=== PATIENT | female | born 1975 | race Caucasian/White ===

== ENCOUNTER 2016-10-07 07:48 | Emergency (ER) | payer BC, OTHER ==
[~2016-10-07] VITALS: Ht 165.1 cm; Wt 65.0 kg
[2016-10-07 07:58] VITALS: Ht 165.1 cm; Wt 65.0 kg
[2016-10-07] MEDS ORDERED: KETOROLAC 15 MG INJ IV STA (08:20)
[2016-10-07] MEDS ORDERED: SOD CHLORIDE 0.9% 1,000 ML IV STA (08:20)
[2016-10-07] MEDS ORDERED: ONDANSETRON 4 MG INJ IV STA (08:20)
[2016-10-07 08:49] LABS: ADD SCAN DIFF NO
[2016-10-07 08:54] LABS: ABNORMAL IP MESSAGE 1; BASOPHILS % 0.2 % (0.0-2.0); EOSINOPHILS # 0.2 10^3/ul (0.0-0.5); EOSINOPHILS % 2.4 % (0.0-7.0); HEMATOCRIT 38.9 % (37.0-47.0); LYMPHOCYTES # 0.3 10^3/ul (0.8-2.9); LYMPHOCYTES % 5.4 % (15.0-51.0); MEAN CORPUSCULAR HEMOGLOBIN 31.6 pg (29.0-33.0); MEAN CORPUSCULAR HGB CONC 33.4 g/dl (32.0-37.0); MEAN CORPUSCULAR VOLUME 94.4 fl (82.0-101.0); MEAN PLATELET VOLUME 9.3 fl (7.4-10.4); MONOCYTE # 0.4 10^3/ul (0.3-0.9); MONOCYTES % 6.3 % (0.0-11.0); NEUTROPHIL # 5.4 10^3/ul (1.6-7.5); NEUTROPHILS % 85.5 % (39.0-77.0); PLATELET COUNT 224 10^3/UL (140-415); RED BLOOD COUNT 4.12 10^6/ul (4.20-5.40); RED CELL DISTRIBUTION WIDTH 12.1 % (11.5-14.5); WHITE BLOOD COUNT 6.3 10^3/ul (4.8-10.8)
--- NOTE | 2016-10-07 08:56 | ERD ---
ER Documentation Chief Complaint Date/Time DATE: 10/07/16 TIME: 08:53 Chief Complaint nausea vomiting dizzy abdominal pain since last night HPI Is a 41-year-old female who presents emergency department today complaining of multiple bouts of vomiting since last night. States she has had some abdominal pain and headache and dizziness. States that she took Dramamine and Pepto- Bismol last night with no improvement in symptoms. Denies any fevers or chills , cough, diarrhea. States she is here with her daughter with similar symptoms ROS All systems reviewed and are negative except as per history of present illness. Medications Home Meds Active Scripts Acetaminophen* (Tylophen*) 500 Mg Capsule, 1 CAP PO Q6H Y for PAIN AND OR ELEVATED TEMP, #30 CAP Prov:KODY GARZA PA-C 10/07/16 Naproxen* (Naprosyn*) 500 Mg Tablet, 500 MG PO BID Y for PAIN AND/OR INFLAMMATION, #30 TAB Prov:KOYD GARZA PA-C 10/07/16 Ondansetron Hcl* (Zofran*) 4 Mg Tablet, 4 MG PO Q6H for NAUSEA AND/OR VOMITING, #30 TAB Prov:KODY GARZA PA-C 10/07/16 PMhx/Soc Medical and Surgical Hx: pt denies Medical Hx, pt denies Surgical Hx Hx Alcohol Use: No Hx Substance Use: No Hx Tobacco Use: No Smoking Status: Never smoker Physical Exam Vitals Vital Signs Date Time Temp Pulse Resp B/P Pulse Ox O2 Delivery O2 Flow Rate FiO2 10/07/16 07:58 99.3 112 18 124/74 97 Physical Exam Const: No acute distress Head: Atraumatic Eyes: Normal Conjunctiva. PERRLA. EOM intact ENT: Normal External Ears, Nose and Mouth. Neck: Full range of motion..~ No meningismus. Resp: Clear to auscultation bilaterally Cardio: Regular rate and rhythm, no murmurs Abd: Soft, mild epigastric, non distended. Normal bowel sounds no right upper quadrant pain. No tenderness [place] Skin: No petechiae or rashes Back: No midline or flank tenderness Ext: No cyanosis, or edema Neur: Awake and alert. Cranial nerves II through XII intact. No gait ataxia. Psych: Normal Mood and Affect Result Diagram: 10/07/16 0835 10/07/16 0835 Results 24 hrs Laboratory Tests Test 10/07/16 08:35 White Blood Count 6.310^3/ul Red Blood Count 4.1210^6/ul Hemoglobin 13.0g/dl Hematocrit 38.9% Mean Corpuscular Volume 94.4fl Mean Corpuscular Hemoglobin 31.6pg Mean Corpuscular Hemoglobin Concent 33.4g/dl Red Cell Distribution Width 12.1% Platelet Count 05515^3/UL Mean Platelet Volume 9.3fl Neutrophils % 85.5% Lymphocytes % 5.4% Monocytes % 6.3% Eosinophils % 2.4% Basophils % 0.2% Nucleated Red Blood Cells % 0.0/100WBC Neutrophils # 5.410^3/ul Lymphocytes # 0.310^3/ul Monocytes # 0.410^3/ul Eosinophils # 0.210^3/ul Basophils # 0.010^3/ul Nucleated Red Blood Cells # 0.010^3/ul Urine Color YELLOW Urine Clarity SLIGHTLY CLOUDY Urine pH 7.0 Urine Specific [place] 1.029 Urine Ketones NEGATIVEmg/dL Urine Nitrite NEGATIVEmg/dL Urine Bilirubin NEGATIVEmg/dL Urine Urobilinogen NEGATIVEmg/dL Urine Leukocyte Esterase NEGATIVELeu/ul Urine Microscopic RBC 2/HPF Urine Microscopic WBC 1/HPF Urine Squamous Epithelial Cells FEW/HPF Urine Hemoglobin NEGATIVEmg/dL Urine Glucose NEGATIVEmg/dL Urine Total Protein NEGATIVEmg/dl Sodium Level 141mmol/L Potassium Level 4.2mmol/L Chloride Level 101mmol/L Carbon Dioxide Level 27mmol/L Anion Gap 17 Blood Urea Nitrogen 20mg/dl Creatinine 0.88mg/dl Glucose Level 103mg/dl Calcium Level 8.3mg/dl Total Bilirubin 0.5mg/dl Direct Bilirubin 0.00mg/dl Indirect Bilirubin 0.5mg/dl Aspartate Amino Transf (AST/SGOT) 24IU/L Alanine Aminotransferase (ALT/SGPT) 27IU/L Alkaline Phosphatase 45IU/L Total Protein 6.8g/dl Albumin 4.4g/dl Globulin 2.40g/dl Albumin/Globulin Ratio 1.83 Lipase 76U/L Current Medications Medications (Trade) Dose Ordered Sig/Moustapha Route PRN Reason Start Time Stop Time Status Last Admin Dose Admin Sodium Chloride (NS) 1,000 ml @ 1,000 mls/hr Q1H STAT IV 7/17/17 08:20 10/07/16 09:19 DC 10/07/16 08:32 Ondansetron HCl (Zofran Inj) 4 mg ONCE STAT IV 10/07/16 08:20 10/07/16 08:22 DC 10/07/16 08:33 Ketorolac Tromethamine (Toradol) 30 mg ONCE STAT IV 10/07/16 08:20 10/07/16 08:22 DC 10/07/16 08:34 Procedures/MDM This 41-year-old female who presents the emergency department today for vomiting , dizziness, headache and abdominal pain that started last night. Patient had very mild epigastric pain on physical exam. She was afebrile and otherwise well -appearing however she was tachycardic. I did obtain laboratory work on the patient Laboratory workup shows no elevated white blood cell count. She is not anemic. Platelets are within normal limits. Electrolytes are within normal limits. Liver functions normal limits. Lipase within normal limits. UA is negative for infection Urine test is negative Patient has no focal neurologic deficits and no gait ataxia and I do not feel that she requires a head CT scan at this time. Low suspicion for acute hemorrhage, mass, abscess, meningitis Patient has no right upper quadrant pain and really nonspecific abdominal pain I do not feel that she requires imaging at this time. She is also here in the emergency department with her daughter with similar symptoms. Patient symptoms at this time consistent with vomiting and mild abdominal pain, likely viral. Low suspicion for acute surgical abdomen. Patient was given Zofran, IV fluids and Toradol here in the emergency department and reported significant improvement. She will be given a prescription for Naprosyn, Tylenol, Zofran. She was instructed to drink plenty of clear fluids At this time the patient is stable for discharge and outpatient management. Patient should follow up with their PCP in the next 1-2 days. They may return to the emergency department sooner for any persistent or worsening of symptoms. Patient understood and agreed with the plan. Departure Diagnosis: Primary Impression: Multiple complaints Condition: KODY Kendrick PA-C Oct 07, 2016 08:56
[2016-10-07 09:11] LABS: ALBUMIN 4.4 g/dl (3.3-4.9); ALBUMIN/GLOBULIN RATIO 1.83; BILIRUBIN,INDIRECT 0.5 mg/dl (0-1.1); BILIRUBIN,TOTAL 0.5 mg/dl (0.2-1.3); CALCIUM 8.3 mg/dl (8.4-10.2); CREATININE 0.88 mg/dl (0.44-1.00); POTASSIUM 4.2 mmol/L (3.5-5.1); TOTAL PROTEIN 6.8 g/dl (6.1-8.1)
[2016-10-07 09:15] LABS: ADD UMIC NO; UR ASCORBIC ACID NEGATIVE (NEGATIVE); UR BILIRUBIN (Dip) NEGATIVE (NEGATIVE); UR BLOOD (Dip) NEGATIVE (NEGATIVE); UR CLARITY SLIGHTLY CLOUDY (CLEAR); UR COLOR YELLOW (YELLOW); UR GLUCOSE (Dip) NEGATIVE (NEGATIVE); UR KETONES (Dip) NEGATIVE (NEGATIVE); UR LEUKOCYTE ESTERASE (Dip) NEGATIVE Leu/ul (NEGATIVE); UR NITRITE (Dip) NEGATIVE (NEGATIVE); UR RBC 2 /HPF (0-5); UR SPECIFIC GRAVITY (Dip) 1.029 (1.003-1.030); UR SQUAMOUS EPITHELIAL CELL FEW /HPF (FEW); UR TOTAL PROTEIN (Dip) NEGATIVE (NEGATIVE); UR UROBILINOGEN (Dip) NEGATIVE (NEGATIVE)
[2016-10-07] MEDS ORDERED: NAPR-260 PO (09:46)
[2016-10-07] MEDS ORDERED: ONDA4TAB8 PO (09:46)
[2016-10-07] MEDS ORDERED: ACET500C5 PO (09:47)
[2016-10-07 09:56] VITALS: BP 126/70; PULSE 82; RESP 18; TEMP 98.1
== END 2016-10-07 09:57 | disposition home or self-care (01) ==
LOC: FTE 07:48
DX: R11.2 Nausea with vomiting, unspecified (principal); R42 Dizziness and giddiness; R10.9 Unspecified abdominal pain; R51 Headache
CPT/HCPCS: 80053; 81001; 83690; 85025; J1885; J2405; J7030; 36415; 81003; 96374; 96375